=== PATIENT | female | born 1945 | race Caucasian/White ===

== ENCOUNTER 2017-12-16 10:39 | Emergency (ER) | payer MEDICARE, MEDICAID ==
--- NOTE | 2017-12-16 09:43 | EDM.PDOC ---
ED HPI GENERAL MEDICAL PROBLEM - General Stated Complaint: IN BY AMBULANCE Time Seen by Provider: 12/16/17 09:25 Source of Information: Reports: Patient, EMS, Family History Limitations: Reports: No Limitations - History of Present Illness INITIAL COMMENTS - FREE TEXT/NARRATIVE: This 72 yo female patient was brought to the ED by [facility] and [facility] due to increased left sided weakness over the past 2-3 days. The patient and her spouse reported that her symptoms started on Saturday morning and have been getting worse. The patient reports that she has a history of brain cancer (5 lesions in her head with corina to her lungs and liver). The patient has been getting radiation with her last treatment on Saturday and is scheduled for another treatment today (1029). The patient sees Dr. London through [facility] in [place]. Onset Date: 12/14/17 Duration: Constant, Getting Worse Location: Reports: Upper Extremity, Left, Lower Extremity, Left Quality: Reports: Other (weakness) Severity: Moderate Improves with: Reports: None Worsens with: Reports: None Associated Symptoms: Reports: No Other Symptoms - Related Data Allergies Allergy/AdvReac Type Severity Reaction Status Date / Time No Known Allergies Allergy Verified 07/26/14 14:13 Home Meds: Home Meds Aspirin [Adult Low Dose Aspirin EC] 81 mg PO DAILY 07/26/14 [History] Calcium Carbonate/Vitamin D3 [Calcium 600-Vit D3 400 Tablet] 1 tab PO DAILY 04/01 [History] Lansoprazole [Prevacid] 30 mg PO BEDTIME 07/26/14 [History] Loratadine [Claritin] 10 mg PO BEDTIME 07/26/14 [History] Simvastatin [Zocor] 40 mg PO BEDTIME 07/26/14 [History] Venlafaxine HCl [Venlafaxine ER] 75 mg PO DAILY 07/26/14 [History] Naproxen Sodium/P-Ephed HCl [All Day Pain Relief Caplet] 1 tab PO DAILY [History] Plant Stanol Estelle [Cholest Off] 900 mg PO DAILY 07/27/14 [History] ALPRAZolam [Alprazolam] 1 tab PO TID PRN 12/16/17 [History] Dexamethasone 1 tab PO BID 12/16/17 [History] Lisinopril/Hydrochlorothiazide [Lisinopril-Hctz 20-25 mg Tab] 1 tab PO DAILY [History] amLODIPine Besylate [Amlodipine Besylate] 1 tab PO DAILY 12/16/17 [History] ED ROS GENERAL - Review of Systems Review Of Systems: ROS reveals no pertinent complaints other than HPI. ED EXAM, NEURO - Physical Exam Exam: See Below Exam Limited By: No Limitations General Appearance: Alert, WD/WN, Moderate Distress Eye Exam: Bilateral Eye: EOMI, Normal Inspection, PERRL Ears: Normal External Exam, Normal Canal, Hearing Grossly Normal, Normal TMs Nose: Normal Inspection Throat/Mouth: Normal Inspection, Normal Lips, Normal Teeth, Normal Gums, Normal Oropharynx, Normal Voice, No Airway Compromise, Other (dry) Head Exam: Atraumatic, Normocephalic Neck: Normal Inspection, Supple, Non-Tender, Full Range of Motion Respiratory/Chest: No Respiratory Distress, Lungs Clear, Normal Breath Sounds, No Accessory Muscle Use, Chest Non-Tender Cardiovascular: Normal Peripheral Pulses, Regular Rate, Rhythm, No Gallop, No JVD, No Murmur, No Rub GI/Abdominal: Normal Bowel Sounds, Soft, Non-Tender, No Organomegaly, No Distention, No Abnormal Bruit, No Mass (Female) Exam: Deferred Rectal (Female) Exam: Deferred Neurological: Alert, Oriented x 3, Other (diffuse left sided weakness) Back Exam: Normal Inspection, Full Range of Motion, NT Extremities: Other (generalized left sided weakness, but is able to move extremities) Psychiatric: Normal Affect, Normal Mood Skin Exam: Warm, Dry, Intact, Normal Color, No Rash Course - Vital Signs Last Recorded V/S: Last Vital Signs Temp 36.8 C 12/16/17 09:08 Pulse 103 H 12/16/17 09:08 Resp 23 H 12/16/17 09:08 BP 121/63 12/16/17 09:08 Pulse Ox 90 L 12/16/17 09:08 - Orders/Labs/Meds Orders: Active Orders 24 hr Category Date Time Status EKG Documentation Completion [RC] URGENT Care 12/16/17 09:13 Active Chest 1V Frontal [CR] Urgent Exams 12/16/17 09:45 Taken Head wo Cont [CT] Urgent Exams 12/16/17 09:07 Taken Labs: Laboratory Tests 12/16/17 12/16/17 12/16/17 Range/Units 09:26 09:26 09:26 WBC 17.5 H (5.0-10.0) 10^3/uL RBC 5.21 (4.2-5.4) 10^6/uL Hgb 16.5 H (12.0-16.0) g/dL Hct 46.9 (37.0-47.0) % MCV 90.0 (80-100) fL MCH 31.7 (27.0-34.0) pg MCHC 35.2 H (33.0-35.0) g/dL Plt Count 161 (150-450) 10^3/uL Neut % (Auto) 85.6 H (42.2-75.2) % Lymph % (Auto) 7.9 L (20.5-50.1) % [place] % (Auto) 6.1 (2-8) % Eos % (Auto) 0.2 L (1.0-3.0) % Baso % (Auto) 0.2 (0.0-1.0) % Add Manual Diff Yes Neutrophils % (Manual) 80 H (42-75) % Band Neutrophils % 6 % Lymphocytes % (Manual) 8 L (20-50) % Monocytes % (Manual) 6 (2-8) % PT 10.4 (9.0-12.0) SEC INR 1.0 (0.9-1.2) Sodium 126 L (135-145) mmol/L Potassium 3.5 L (3.6-5.0) mmol/L Chloride 91 L (101-111) mmol/L Carbon Dioxide 23.0 (21.0-31.0) mmol/L Anion Gap 15.5 BUN 32 H (7-18) mg/dL Creatinine 1.0 (0.6-1.3) mg/dL Est Cr Clr Drug Dosing TNP Estimated GFR (MDRD) 55 BUN/Creatinine Ratio 32.00 Glucose 157 H (74-105) mg/dL POC Glucose (83-110) mg/dl Calcium 8.8 (8.4-10.2) mg/dl Total Bilirubin 1.5 H (0.2-1.0) mg/dL AST 34 (10-42) IU/L ALT 113 H (10-60) IU/L Alkaline Phosphatase 72 (42-121) IU/L Troponin I 0.05 H* (0.00-0.02) ng/ml Total Protein 6.0 L (6.7-8.2) g/dl Albumin 3.2 (3.2-5.5) g/dl Globulin 2.8 Albumin/Globulin Ratio 1.14 04/30/18 Range/Units 09:34 WBC (5.0-10.0) 10^3/uL RBC (4.2-5.4) 10^6/uL Hgb (12.0-16.0) g/dL Hct (37.0-47.0) % MCV (80-100) fL MCH (27.0-34.0) pg MCHC (33.0-35.0) g/dL Plt Count (150-450) 10^3/uL Neut % (Auto) (42.2-75.2) % Lymph % (Auto) (20.5-50.1) % [place] % (Auto) (2-8) % Eos % (Auto) (1.0-3.0) % Baso % (Auto) (0.0-1.0) % Add Manual Diff Neutrophils % (Manual) (42-75) % Band Neutrophils % % Lymphocytes % (Manual) (20-50) % Monocytes % (Manual) (2-8) % PT (9.0-12.0) SEC INR (0.9-1.2) Sodium (135-145) mmol/L Potassium (3.6-5.0) mmol/L Chloride (101-111) mmol/L Carbon Dioxide (21.0-31.0) mmol/L Anion Gap BUN (7-18) mg/dL Creatinine (0.6-1.3) mg/dL Est Cr Clr Drug Dosing Estimated GFR (MDRD) BUN/Creatinine Ratio Glucose (74-105) mg/dL POC Glucose 145 H (83-110) mg/dl Calcium (8.4-10.2) mg/dl Total Bilirubin (0.2-1.0) mg/dL AST (10-42) IU/L ALT (10-60) IU/L Alkaline Phosphatase (42-121) IU/L Troponin I (0.00-0.02) ng/ml Total Protein (6.7-8.2) g/dl Albumin (3.2-5.5) g/dl Globulin Albumin/Globulin Ratio Meds: Medications Discontinued Medications Generic Name Dose Route Start Last Admin Trade Name Jacobo PRN Reason Stop Dose Admin Ceftriaxone Sodium 1 gm 12/16/17 10:29 Rocephin IVPUSH 12/16/17 10:30 ONETIME ONE Departure - Departure Time of Disposition: 01:33 Disposition: DC/Tfer to Acute Hospital 02 Condition: Fair Clinical Impression: Left-sided weakness, Bronchitis Leukocytosis Qualifiers: Leukocytosis type: bandemia Qualified Code(s): D72.825 - Bandemia Brain cancer Qualifiers: Malignant neoplasm of brain location: unspecified location Qualified Code(s): C71.9 - Malignant neoplasm of brain, unspecified - Discharge Information Forms: Interfacility Transfer EMTALA Care Plan Goals: Discussed the history, examination, lab, CT and x-ray results with Dr. Hanna. Dr. Hanna accepted the patient for continued evaluation and treatment. The patient will be transported by [facility]. - My Orders Last 24 Hours: My Active Orders 12/16/17 09:07 Head wo Cont [CT] Urgent 12/16/17 09:13 EKG Documentation Completion [RC] URGENT 12/16/17 09:45 Chest 1V Frontal [CR] Urgent - Assessment/Plan Last 24 Hours: My Active Orders 12/16/17 09:07 Head wo Cont [CT] Urgent 12/16/17 09:13 EKG Documentation Completion [RC] URGENT 12/16/17 09:45 Chest 1V Frontal [CR] Urgent
[2017-12-16 09:52] LABS: CHLORIDE,CL 91 mmol/L (101-111); SODIUM,NA 126 mmol/L (135-145)
[~2017-12-16 10:39] MED LIST: cefTRIAXone 1 GM Vial IVPUSH ONE
--- NOTE | 2017-12-16 11:48 | CR ---
Sunita mouth shows 72-year-old female with cough and elevated white blood cell count (19,000). Known b rain malignancy. Interpretation: Upright AP portable chest film abnormal. No previous films immediately available for comparison. Large oval, eccentric, pleural-based 4.9 x 5.6 cm right upper lobe parenchymal mass lesion. Normal cardiac silhouette without cephalization of flow, signs of alveolar edema or dependent pleural fluid accumulation (poor respiratory effort crowding markings lung base and blunting costophrenic leyva lci). Minimal shaggy bronchitic pattern. No other parenchymal lung mass lesion, signs of hilar lymphadenopathy or focal lobar pneumonia.
--- NOTE | 2017-12-16 11:48 | CT ---
CLINICAL HISTORY: 72-year-old female with left-sided weakness who reports "brain cancer" that is also "spread to the lung and liver". No previous exams immediately available at this institution for gregg meade. SCAN TECHNIQUE: Volume acquisition of data from an emergency unenhanced CT scan of the head and brain obtained while the patient was lying supine on the Siemens multislice scanner [facility]. All data archived in the PACS system for storage and study (bone/brain tom ). INTERPRETATION: Abnormal. 1. Multiple round intracerebral "bull's-eye" mass lesions identified in both cerebral hemispheres (R > L) and right cerebellum. These are all associated with extensive surrounding cerebral edema. Minima l mass effect on the underlying ventricular system. 2. Largest malignant appearing lesion(s), occipital lobe posteriorly, right cerebral hemisphere measu res 4.4 cm L x 3.0 cm W. 3. Two large lesions right parietal lobe (1 deep near the midline falx, high in the convexity, measur ing 2.3 cm diameter with surrounding edema and a second distinctly separate 3 cm diameter intracerebr al mass with extensive surrounding edema laterally in the right parietal lobe. A fourth smaller 16 mm mass right frontal lobe, high convexity laterally. 4. Fifth supratentorial intracerebral mass lesion involving parietal-occipital region left cerebral h emisphere measures 19 x 25 mm. 5. Eccentric 19 x 27 mm mass lesion identified posteriorly cerebellum on the right appears to lie in the transverse sinus. 6. No sign of acute intracranial hemorrhage, obstructive hydrocephalus or midline shift. 7. No skull fractures or pathologic skeletal lesions. No abnormal extracerebral/intracranial epidural or subdural hematoma. 8. Inflammatory changes ethmoid sinuses and dependent air-fluid levels right maxillary/left sphenoid sinuses consistent with inflammation, i.e., sinusitis. Mastoid sinuses symmetrically pneumatized and clear. CONCLUSION: Pansinusitis. Multiple (6 distinct intracranial masses) metastatic lesions with surroundi ng edema. No sign of midline shift, hydrocephalus, or acute intracerebral/intraventricular/tumoral/leyva barachnoid bleed.
--- NOTE | 2017-12-18 16:12 | EKG ---
12/16/2017 - RONI EUBANKS - TIME: 9:30 a.m. FINDINGS: Sinus rhythm with probable left ventricular hypertrophy with secondary repolarization abnormality. [facility] /[id number]
== END 2017-12-16 11:02 ==
LOC: DL.ED 10:39
DX: J40 Bronchitis, not specified as acute or chronic (principal); D72.825 Bandemia; C71.9 Malignant neoplasm of brain, unspecified; C78.02 Secondary malignant neoplasm of left lung; C78.01 Secondary malignant neoplasm of right lung; C78.7 Secondary malignant neoplasm of liver and intrahepatic bile duct; Z79.82 Long term (current) use of aspirin; Z79.899 Other long term (current) drug therapy
CPT/HCPCS: 36415; 70450; 71045; 80053; 82962; 84484; 85025; 85610; 93005; 93010; 96374; 99285; J0696